=== PATIENT | female | born 1965 | race Caucasian/White ===

== ENCOUNTER 2020-08-04 12:43 | Emergency (ER) | payer MEDICAID ==
[~2020-08-04] VITALS: Ht 165.1 cm; Wt 63.5 kg
--- NOTE | 2020-08-04 13:15 | NUR ---
[facility] FROM A BANK TO ER BED 6. ON A 5150 HOLD FOR DANGER TO SELF. PT IS HAVING SUICIDAL THOUGHTS WITH THOUGHTS OF RUNNING INTO TRAFFIC. PT VERBALIZED THAT SHE LOST AND AND FEELING DEPRESSED. PT DENIES HI. DENIES BOTH AUDITORY AND VISUAL HALLUCINATION. PT IS GOWNED. URINE COLLECTED AND SITTER AT BEDSIDE. AWAITING FOR MD WILD
[2020-08-04 14:49] LABS: BASOPHILS % (AUTO) 0.5 % (0.0-2.0); EOSINOPHILS % (AUTO) 5.6 % (0.0-6.0); HEMATOCRIT 39 % (33-45); HEMOGLOBIN 12.6 g/dL (11.5-14.8); LYMPHOCYTES # (AUTO) 2.3 /CMM (0.8-4.8); LYMPHOCYTES % (AUTO) 30.1 % (20.0-44.0); MEAN CORPUSCULAR HGB CONC 33 g/dl (31.0-36.0); MEAN CORPUSCULAR VOLUME 97 fL (82-100); MONOCYTES # (AUTO) 0.5 /CMM (0.1-1.30); MONOCYTES % (AUTO) 6.7 % (2.0-12.0); NEUTROPHILS # (AUTO) 4.3 /CMM (1.8-8.9); NEUTROPHILS % (AUTO) 57.1 % (43.0-81.0); PLATELET COUNT (AUTO) 328 /CMM (150-450); RED BLOOD CELL COUNT(AUTO) 3.97 MIL/uL (4.0-5.2); WHITE BLOOD COUNT (AUTO) 7.5 K/uL (4.3-11.0)
[2020-08-04 14:55] LABS: BILIRUBIN,URINE MODERATE (NEGATIVE); COLOR,URINE YELLOW (YELLOW); LEUKOCYTE ESTERASE ,URINE Trace (NEGATIVE); NITRITE, URINE Negative (NEGATIVE); PH,URINE 5.5 (5.0-8.0); PROTEIN,URINE Negative (NEGATIVE); UGLUCOSE Negative (NEGATIVE); UROBILINOGEN,URINE 0.2 EU/dL (0.2)
[2020-08-04 14:56] LABS: CALCIUM, SERUM 9.2 mg/dL (8.5-10.1); CARBON DIOXIDE 27 mmol/L (21-32); CHLORIDE 102 mmol/L (98-107); CREATININE 0.8 mg/dL (0.6-1.3); GLUCOSE 72 mg/dL (74-106); POTASSIUM 3.8 mmol/L (3.5-5.1); SODIUM SERUM 139 mmol/L (136-145); UREA NITROGEN, BLOOD 9 mg/dL (7-18)
[2020-08-04 15:00] LABS: BACTERIA,URINE 2+ /HPF (None Seen); MUCUS,URINE Many /LPF (None Seen); SQUAMOUS EPITHELIAL CELL,UR Moderate /HPF (None Seen); URINE AMORPHOUS URATE Moderate /HPF (None Seen)
[2020-08-04 15:04] LABS: ALANINE AMINOTRANSFERASE 31 U/L (12-78); ALBUMIN 4.2 g/dL (3.4-5.0); ALKALINE PHOSPHATASE 102 U/L (46-116); ASPARTATE AMINOTRANSFERASE 35 U/L (15-37); BILIRUBIN,DIRECT 0.1 mg/dL (0.0-0.2); BILIRUBIN,TOTAL 0.5 mg/dL (0.2-1.0); TOTAL PROTEIN, SERUM 7.8 g/dL (6.4-8.2)
[2020-08-04 15:06] LABS: ACETAMINOPHEN < 2 ug/ml (10-30); ALCOHOL, BLOOD < 3 mg/dL (0-0)
--- NOTE | 2020-08-04 16:38 | NUR ---
SW notified admitting to apply for presumptive [facility] for this pt. as they are on a hold and need placement.
--- NOTE | 2020-08-04 16:39 | NUR ---
SW called ED and spoke to LUCINDA Miles for COVID test to be completed.
--- NOTE | 2020-08-04 16:43 | NUR ---
LANA faxed clinicals to [facility] [address]. [facility] [id number]; Unit TEL: [phone] Intake for female pt. on 6737 hold for DTS.
--- NOTE | 2020-08-04 17:16 | NUR ---
LANA faxed clinicals to [facility] for voluntary psychiatric admission, if appropriate. . This GRAPHIC ART TECHNICIAN informed RN Chet that [facility] is also an option, pending patient's status and crisis evaluation. Chet to follow-up with calling electronic bench technician once patient is medically cleared. Chet also stated that COVID test is pending at this time.
--- NOTE | 2020-08-04 21:31 | NUR ---
TRANSFER INFORMATION: PT ACCEPTED AT [facility] RUBINA MANRIQUEZ ACCEPTING MD CONROY PHONE NUMBER FOR REPORT
--- NOTE | 2020-08-04 21:36 | NUR ---
CALLED [facility] FOR BLS TO [place], ETA [phone]
[2020-08-04 22:00] VITALS: BP 123/78
--- NOTE | 2020-08-04 22:08 | NUR ---
REPORT GIVEN TO LUCINDA MOSLEY FOR JULIO AT THE [facility]
--- NOTE | 2020-08-04 22:42 | NUR ---
PT LEFT ON GURNEY WITH 2 EMT FROM [facility]. REPORT GIVEN EMT FOR TRANSPORT. PT IS IN STABLE CONDITION FOR TRANSPORT. PT AMBULATED TO [facility] ON [facility]. REPORT GIVEN.
== END 2020-08-04 22:41 ==
LOC: ER 12:43
DX: R45.851 Suicidal ideations (principal); F29 Unspecified psychosis not due to a substance or known physiological condition; I25.2 Old myocardial infarction; J44.9 Chronic obstructive pulmonary disease, unspecified; F17.200 Nicotine dependence, unspecified, uncomplicated; Z20.822 Contact with and (suspected) exposure to COVID-19
CPT/HCPCS: 36415; 80048; 80076; 80143; 80307; 80320; 81001; 85025; 87086; 87426; 99285; C9803; G0480